=== PATIENT | female | born 1940 | race Caucasian/White ===

== ENCOUNTER 2019-10-04 18:48 | Emergency (ER) | payer MEDICARE ==
[2019-10-04 19:19] VITALS: BP 162/64; PULSE 85
[2019-10-04] MEDS ORDERED: Phenazopyridine 95 MG Tab PO ONE (19:27)
[2019-10-04] MEDS ORDERED: cefTRIAXone 1 GM, Lidocaine 1% 2.1 ML IM ONE ×2 (19:28)
--- NOTE | 2019-10-04 19:36 | EDM.PDOC ---
ED HPI GENERAL MEDICAL PROBLEM - General Chief Complaint: Abdominal Pain Stated Complaint: ABD PAIN LT SIDE/PAIN IN BACK Time Seen by Provider: 10/04/19 18:51 Source of Information: Reports: Patient, Family (Daughter in law) History Limitations: Reports: No Limitations - History of Present Illness INITIAL COMMENTS - FREE TEXT/NARRATIVE: chief complaint: painful urination This is a 79 year old female presents to the ER with her Daughter in law for evaluation of bladder pain. She reports yesterday didn't feel well but today at 3 pm had bladder pain after urination. denies any fever, chills, nausea, vomiting, cough or chest pain. Onset Date: 10/04/19 Onset Time: 15:00 Duration: Day(s): Location: Reports: Pelvis (dysuria) Quality: Reports: Ache, Burning, Pressure Severity: Mild Improves with: Reports: None Worsens with: Reports: None Associated Symptoms: Reports: No Other Symptoms Back Pain Score (Numeric/FACES): 4 - Related Data Allergies Allergy/AdvReac Type Severity Reaction Status Date / Time pravastatin Allergy Muscle Verified 10/04/19 19:10 Aches [id number] Reductase Allergy Muscle Verified 10/04/19 19:10 Inhibitor Aches lisinopril Allergy Cough Uncoded 10/04/19 19:10 Home Meds: Home Meds glipiZIDE [Glucotrol] 5 mg PO BID 10/10/13 [History] Acetaminophen 500 tab PO Q4HR PRN 10/18/13 [History] Aspirin [Adult Low Dose Aspirin EC] 81 mg PO DAILY 10/18/13 [History] Metoprolol Tartrate 100 mg PO BID 10/18/13 [History] metFORMIN [Glucophage XR] 500 mg PO BID 11/19/14 [History] hydroCHLOROthiazide [Hydrochlorothiazide] 12.5 mg PO DAILY 30 Days #30 tablet 10/31/18 [Rx] Past Medical History HEENT History: Reports: Cataract, Impaired Vision Other HEENT History: wears glasses Cardiovascular History: Reports: High Cholesterol, Hypertension Respiratory History: Reports: Bronchitis, Recurrent Gastrointestinal History: Reports: Colon Polyp, Diverticulosis, GERD, Hiatal Hernia Genitourinary History: Reports: Renal Calculus 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: Reports: Musculoskeletal History: Reports: Fracture, RA Endocrine/Metabolic History: Reports: Diabetes, Type II, Obesity/BMI 30+ Hematologic History: Reports: Anemia, Blood Transfusion(s) Oncologic (Cancer) History: Reports: Colon - Infectious Disease History Infectious Disease History: Reports: Chicken Pox, Measles, Mumps - Past Surgical History HEENT Surgical History: Reports: Cataract Surgery GI Surgical History: Reports: Cholecystectomy, Colon, Colonoscopy, Hernia, Abdominal, Aline Fundoplication Female Surgical History: Reports: Kidney stone extraction, Lithotripsy/ESWL, Oophorectomy Social & Family History - Family History Family Medical History: Noncontributory - Tobacco Use Smoking Status *Q: Never Smoker - Caffeine Use Caffeine Use: Reports: Coffee - Living Situation & Occupation Living situation: Reports: Alone (lives alone in [place], [place]. Family members are in the area.) ED ROS GENERAL - Review of Systems Review Of Systems: See Below Constitutional: Reports: Malaise (reports "just didn't feel well yesterday") HEENT: Reports: No Symptoms Respiratory: Reports: No Symptoms Cardiovascular: Reports: No Symptoms Endocrine: Reports: No Symptoms GI/Abdominal: Reports: Abdominal Pain (low abdominal pain) : Reports: Dysuria, Frequency, Urgency Musculoskeletal: Reports: No Symptoms Skin: Reports: No Symptoms Neurological: Reports: No Symptoms Psychiatric: Reports: No Symptoms Hematologic/Lymphatic: Reports: No Symptoms Immunologic: Reports: No Symptoms ED EXAM, GI/ABD - Physical Exam Exam: See Below Exam Limited By: No Limitations General Appearance: Alert, WD/WN, No Apparent Distress Eyes: Bilateral: Normal Appearance Head: Atraumatic, Normocephalic Neck: Normal Inspection, Supple, Non-Tender, Full Range of Motion Respiratory/Chest: No Respiratory Distress, Lungs Clear, Normal Breath Sounds, No Accessory Muscle Use, Chest Non-Tender Cardiovascular: Normal Peripheral Pulses, Regular Rate, Rhythm, No Edema, No Gallop, No JVD, No Murmur, No Rub GI/Abdominal Exam: Normal Bowel Sounds, Soft, No Organomegaly, No Distention, No Abnormal Bruit, No Mass, Pelvis Stable, Tender (low pelvis with palpation) (Female) Exam: Deferred Rectal (Female) Exam: Deferred Back Exam: Normal Inspection Extremities: Normal Inspection, Normal Range of Motion, Non-Tender, No Pedal Edema, Normal Capillary Refill Neurological: Alert, Oriented, Normal Cognition, No Motor/Sensory Deficits Psychiatric: Normal Affect, Normal Mood Skin Exam: Warm, Dry, Intact, Normal Color, No Rash Lymphatic: No Adenopathy Course - Vital Signs Last Recorded V/S: Last Vital Signs Temp 36.7 C 10/04/19 19:12 Pulse 85 10/04/19 19:12 Resp 20 10/04/19 19:12 BP 162/64 H 10/04/19 19:12 Pulse Ox 98 10/04/19 19:12 - Orders/Labs/Meds Orders: Active Orders 24 hr Category Date Time Status CULTURE URINE [RM] Stat Lab 10/04/19 19:19 Received Labs: Laboratory Tests 10/04/19 Range/Units 19:11 Urine Color Yellow (YELLOW) Urine Appearance Cloudy A (CLEAR) Urine pH 5.5 (5.0-8.0) Ur Specific Iva >= 1.030 (1.008-1.030) Urine Protein 30 H (NEGATIVE) mg/dL Urine Glucose (UA) Negative (NEGATIVE) mg/dL Urine Ketones 15 H (NEGATIVE) mg/dL Urine Occult Blood Trace-intact H (NEGATIVE) Urine Nitrite Positive H (NEGATIVE) Urine Bilirubin Negative (NEGATIVE) Urine Urobilinogen 0.2 (0.2-1.0) EU/dL Ur Leukocyte Esterase Small H (NEGATIVE) Urine RBC 5-10 H (0-5) Urine WBC Semi-packed H (0-5) Ur Epithelial Cells Moderate Amorphous Sediment Not seen Urine Bacteria Many Urine Mucus Not seen Meds: Medications Discontinued Medications Generic Name Dose Route Start Last Admin Trade Name Freq PRN Reason Stop Dose Admin Ceftriaxone Sodium 1 gm/ 0 gm 10/04/19 19:28 Lidocaine HCl 2.1 ml IM 10/04/19 19:29 ONETIME ONE Phenazopyridine HCl 190 mg 10/04/19 19:27 Urinary Pain Relief PO 10/04/19 19:28 ONETIME ONE - Re-Assessments/Exams Free Text/Narrative Re-Assessment/Exam: 10/04/19 19:44 urine sample+ uti. due to Mrs. Oscar age, diabetes type 2- will treat aggressively. will give Rocephin 1 gram IM and Pyridium then tomorrow start Keflex 500mg po bid and Pyridium tid prn pain. advise to push fluids, rest, take medication. return to ER if has any changes such fever, chills, nausea, vomiting, increase pain or not improved. discussed plan of care with Mrs. Oscar and [id number]. They agree with plan of care. Departure - Departure Time of Disposition: 19:47 Disposition: Home, Self-Care 01 Condition: Good Clinical Impression: Urinary tract infection Qualifiers: Urinary tract infection type: acute cystitis Hematuria presence: with hematuria Qualified Code(s): N30.01 - Acute cystitis with hematuria - Discharge Information *PRESCRIPTION DRUG MONITORING PROGRAM REVIEWED*: Not Applicable *COPY OF PRESCRIPTION DRUG MONITORING REPORT IN PATIENT LINDA: Not Applicable Instructions: Urinary Tract Infection, Adult, [id number] Referrals: Jason Bailey MD [Primary Care Provider] - Forms: ED Department Discharge Care Plan Goals: Urinary Tract Infection -given Rocephin 1 gram IM and Pyridium in ER -home medications Keflex 500mg take one in morning and evening til gone -Pyridium one every 8 hours as needed for bladder pain -push fluids -rest, take medications, drink plenty of water -follow up in Primary Care for recheck in 7 to 10 days -urine culture pending Return to Emergency Room if develops fever, chills, nausea, vomiting, rash, weakness or not improved. Sepsis Event Note (ED) - Evaluation Sepsis Screening Result: No Definite Risk - Focused Exam Vital Signs: Vital Signs Temp Pulse Resp BP Pulse Ox 10/04/19 19:12 36.7 C 85 20 162/64 H 98 - Problem List & Annotations (1) Urinary tract infection SNOMED Code(s): 18383587 Code(s): N39.0 - URINARY TRACT INFECTION, SITE NOT SPECIFIED Status: Acute Priority: High Current Visit: Yes Qualifiers: Urinary tract infection type: acute cystitis Hematuria presence: with hematuria Qualified Code(s): N30.01 - Acute cystitis with hematuria - Problem List Review Problem List Initiated/Reviewed/Updated: Yes - My Orders Last 24 Hours: My Active Orders 10/04/19 19:19 CULTURE URINE [RM] Stat - Assessment/Plan Last 24 Hours: My Active Orders 10/04/19 19:19 CULTURE URINE [RM] Stat Plan: Urinary Tract Infection -given Rocephin 1 gram IM and Pyridium in ER -home medications Keflex 500mg take one in morning and evening til gone -Pyridium one every 8 hours as needed for bladder pain -push fluids -rest, take medications, drink plenty of water -follow up in Primary Care for recheck in 7 to 10 days -urine culture pending Return to Emergency Room if develops fever, chills, nausea, vomiting, rash, weakness or not improved.
== END 2019-10-04 19:53 | disposition home or self-care (01) ==
LOC: JP.ED 18:48
DX: N30.01 Acute cystitis with hematuria (principal); E11.9 Type 2 diabetes mellitus without complications; I10 Essential (primary) hypertension; E66.9 Obesity, unspecified; Z88.8 Allergy status to other drugs, medicaments and biological substances; Z79.84 Long term (current) use of oral hypoglycemic drugs; Z79.899 Other long term (current) drug therapy
CPT/HCPCS: 81001; 87086; 87088; 87186; 96372; 99283; A9270; J0696; J2001

== ENCOUNTER 2021-10-03 12:29 | Emergency (ER) | payer MEDICARE, BC ==
[2021-10-03 13:06] VITALS: BP 145/64; PULSE 80
[2021-10-03 15:59] LABS: ESTIMATED GFR 64 mL/min (>60)
[2021-10-03] MEDS ORDERED: Sodium Chloride 0.9% 1,000 ML IV SCH (16:15)
[2021-10-03] MEDS ORDERED: Sodium Chloride 0.9% 10 ML Syringe FLUSH PRN ×2 (16:15→16:52)
[2021-10-03] MEDS ORDERED: Iopamidol 612 MG/ML 100 ML Bottle IV PRN (16:52)
[2021-10-03] MEDS ORDERED: Sodium Chloride 0.9% 50 ML IV ONE (16:52)
== END 2021-10-03 19:15 | disposition home or self-care (01) ==
LOC: JP.ED 12:29
DX: K57.32 Diverticulitis of large intestine without perforation or abscess without bleeding (principal); K62.5 Hemorrhage of anus and rectum; E11.9 Type 2 diabetes mellitus without complications; E66.9 Obesity, unspecified; Z68.34 Body mass index [BMI] 34.0-34.9, adult; Z88.8 Allergy status to other drugs, medicaments and biological substances; Z88.6 Allergy status to analgesic agent; Z79.899 Other long term (current) drug therapy; Z79.82 Long term (current) use of aspirin; Z79.84 Long term (current) use of oral hypoglycemic drugs; Z90.49 Acquired absence of other specified parts of digestive tract
CPT/HCPCS: 36415; 74177; 80053; 82272; 85027; 85610; 85651; 85730; 86140; 87046; 87177; 87209; 87899; 96360; 96361; 99285; J3490; J7030; Q9967

== ENCOUNTER 2021-10-13 06:22 | Day surgery (SDC) | payer MEDICARE, BC ==
[2021-10-13] MEDS ORDERED: Dextrose 5%-Lactated Ringers 1,000 ML IV SCH (07:30)
[2021-10-13] MEDS ORDERED: fentaNYL 100 MCG/2 ML SDV ONE (07:55)
[2021-10-13] MEDS ORDERED: Propofol 200 MG/20 ML SDV ONE (07:55)
[2021-10-13] MEDS ORDERED: Pantoprazole 40 MG Vial IVPUSH ONE (10:00)
[2021-10-13 10:58] VITALS: PULSE 78
[2021-10-13 11:43] VITALS: BP 140/78
== END 2021-10-13 11:15 | disposition home or self-care (01) ==
LOC: JP.SDS 06:22
PROVIDERS: ATTEND Surgery
DX: K57.31 Diverticulosis of large intestine without perforation or abscess with bleeding (principal); K29.60 Other gastritis without bleeding; K64.9 Unspecified hemorrhoids; I10 Essential (primary) hypertension; E11.9 Type 2 diabetes mellitus without complications; E66.9 Obesity, unspecified; Z98.84 Bariatric surgery status; Z85.038 Personal history of other malignant neoplasm of large intestine; Z68.33 Body mass index [BMI] 33.0-33.9, adult
CPT/HCPCS: 43239; 45378; 87081; C9113; J2704; J3010; J7121

== ENCOUNTER 2024-09-08 17:18 | Emergency (ER) | payer MEDICARE, BC ==
[2024-09-08 18:55] LABS: BASOPHILS ABSOLUTE AUTO 0.05 K/uL (0.00-0.10); BASOPHILS PERCENT AUTO 1.1 % (0.1-1.3); EOSINOPHILS ABSOLUTE AUTO 0.14 K/uL (0.00-0.40); EOSINOPHILS PERCENT AUTO 3.2 % (0.0-5.4); IMMATURE GRAN PERCENT AUTO 0.5 % (0.0-0.7); LYMPHOCYTES ABSOLUTE AUTO 1.51 K/uL (0.8-3.3); LYMPHOCYTES PERCENT AUTO 34.0 % (11.4-47.7); MONOCYTES ABSOLUTE AUTO 0.61 K/uL (0.20-0.90); MONOCYTES PERCENT AUTO 13.7 % (3.3-12.6); NEUTROPHILS ABSOLUTE AUTO 2.11 K/uL (1.0-7.6); NEUTROPHILS PERCENT AUTO 47.5 % (40.0-78.1); PLATELET COUNT,PLT 193 K/uL (130-375); RED BLOOD CELL COUNT 4.22 M/uL (3.77-5.24); WHITE BLOOD CELL COUNT,WBC 4.4 K/uL (3.2-11.0)
[2024-09-08 18:57] LABS: IMMATURE GRAN ABSOLUTE AUTO 0.02 K/uL (0.00-0.23)
[2024-09-08 19:14] LABS: A/G RATIO 1.1 (1.2-2.2); ALANINE AMINOTRANSFERASE,ALT 21 U/L (12-78); ASPARTATE AMNIOTRANSFERASE,AST 15 U/L (15-37); BILIRUBIN TOTAL 0.4 mg/dL (0.2-1.0); BLOOD UREA NITROGEN,BUN 18 mg/dL (7-18); CARBON DIOXIDE,CO2 36 mmol/L (21-32); CHLORIDE,CL 95 mmol/L (100-108); CREATININE 0.9 mg/dL (0.6-1.0); EST CRCL DRUG DOSING (CG) 33.42 mL/min; ESTIMATED GFR 63 mL/min (>60); GLUCOSE RANDOM 184 mg/dL (74-106); POTASSIUM,K 3.3 mmol/L (3.6-5.2); PROTEIN TOTAL,TP 7.2 g/dL (6.4-8.2); SODIUM,NA 136 mmol/L (140-148)
[2024-09-08 20:08] LABS: APPEARANCE,URINE CLEAR (CLEAR); GLUCOSE,URINE NEGATIVE (NEGATIVE); OCCULT BLOOD,URINE NEGATIVE (NEGATIVE)
[2024-09-08 20:18] LABS: EPITHELIAL CELLS,URINE NOT SEEN
[2024-09-08 20:31] VITALS: BP 155/82; PULSE 68
== END 2024-09-08 21:13 | disposition home or self-care (01) ==
LOC: JP.ED 17:18
DX: M47.22 Other spondylosis with radiculopathy, cervical region (principal); I10 Essential (primary) hypertension; E11.9 Type 2 diabetes mellitus without complications; K21.9 Gastro-esophageal reflux disease without esophagitis; Z88.8 Allergy status to other drugs, medicaments and biological substances; Z79.82 Long term (current) use of aspirin; Z79.84 Long term (current) use of oral hypoglycemic drugs; Z90.49 Acquired absence of other specified parts of digestive tract; Z86.69 Personal history of other diseases of the nervous system and sense organs
CPT/HCPCS: 36415; 70450; 72125; 76377; 80053; 81001; 84484; 85025; 93005; A9270; 99285